=== PATIENT | male | born 1945 ===

== ENCOUNTER 2017-07-15 06:36 | Day surgery (SDC) | payer MEDICARE ==
[2017-07-14 16:32] VITALS: BMI 23.7
[2017-07-15] MEDS ORDERED: Lidocaine 2% Inj (20ml) ONE (07:15)
[2017-07-15] MEDS ORDERED: Phenylephrine 10 mg/ml Inj ONE (07:16)
[2017-07-15] MEDS ORDERED: Iodixanol 320 MG/ML 100 ML BOTTLE IV ONE (07:17)
[2017-07-15] MEDS ORDERED: Midazolam 2 MG/2 ML VIAL ONE ×2 (07:17→08:54)
[2017-07-15] MEDS ORDERED: Iodixanol 320 MG/ML 200 ML BOTTLE IV ONE (07:17)
[2017-07-15] MEDS ORDERED: Iohexol 350mgl/ml 50 ML ONE (07:17)
[2017-07-15] MEDS ORDERED: Nitroglycerin 50mg in D5W 0 MG/0 ML BOTTLE IV ONE (07:18)
[2017-07-15] MEDS ORDERED: HEPARIN SODIUM/NS 2,000 ML IV ONE (07:18)
[2017-07-15 07:26] LABS: BASO # 0.03 K/mm3 (0.0-2.0); BASO % 0.4 % (0.0-3.0); EOS # 0.9 (0.0-0.7); EOS % 11.2 % (1.5-5.0); GRAN # 4.7 (1.4-6.5); GRAN % 61.3 % (50.0-68.0); HEMOGLOBIN 14.4 g/dL (14.0-18.0); LYMPH # 1.4 (1.2-3.4); LYMPH % 18.5 % (22.0-35.0); MEAN CELL VOLUME 92.1 fl (80.0-105.0); MEAN CORPUSCULAR HEMOGLOBIN 30.1 pg (25.0-35.0); MEAN CORPUSCULAR HGB CONC 32.7 g/dl (31.0-37.0); MEAN PLATELET VOLUME 9.8 fl (7.0-11.0); MONO # 0.7 (0.1-0.6); MONO % 8.6 % (1.0-6.0); RBC 4.79 10^6/uL (3.5-6.1); RED CELL DISTRIBUTION WIDTH 12.5 % (11.5-14.5); WHITE BLOOD COUNT 7.7 10^3/ul (4.5-11.0)
[2017-07-15 07:36] LABS: BLOOD UREA NITROGEN 21 mg/dL (7-21); CALCIUM 9.8 mg/dL (8.4-10.5); GFR AFRICAN-AMERICAN > 60; GFR NON-AFRICAN AMERICAN 59; HDL CHOLESTEROL 34 mg/dL (29-60)
[2017-07-15 07:38] LABS: INR 1.03 (0.93-1.08); PARTIAL THROMBOPLASTIN TIME 28.7 Seconds (25.1-36.5); PROTHROMBIN TIME 11.9 SECONDS (9.4-12.5)
[2017-07-15 07:46] LABS: LDL CHOLESTEROL 166 mg/dL (0-129)
--- NOTE | 2017-07-15 10:09 | CARD ---
APPROVED REPORT EKG Measurement Heart [id number] <Conclusion> Normal sinus rhythm RSR' or QR pattern in V1 suggests right ventricular conduction delay Nonspecific T wave abnormality Abnormal ECG
[2017-07-15] MEDS ORDERED: Sodium Chloride 0.9% 1,000 ML IV SCH (10:30)
[2017-07-15 12:39] VITALS: RESP 18
--- NOTE | 2017-07-15 13:17 | CARDCATH ---
PROCEDURE DATE: 07/15/2017 HISTORY: The patient is a 71-year-old male with a history of hypercholesterolemia and hypertension, who presents with exertional angina. A stress test was markedly abnormal. Because of this, cardiac catheterization was recommended. PROCEDURE: Left heart catheterization with coronary arteriography and left ventriculogram. The right femoral artery was cannulated with a 6-[place] sheath. There were no complications. I performed moderate sedation, which included the presence of an independent trained observer that assisted in monitoring the patient's level of consciousness and physiologic status. After administration of Versed and fentanyl, my intra service time was 15 minutes. The findings on catheterization included a left ventricle that revealed an apical akinesis. The anterior and inferior wall moves well. Overall ejection fraction was approximately 50-55%. His coronary anatomy revealed heavy calcification throughout the coronary tree. The patient had a right dominant circulation. The RCA was occluded in its proximal portion with late filling of the distal vessels. The distal vessels including a PDA was small in nature. The left main artery is unremarkable. The LAD revealed a heavily calcified and diffuse 80% stenosis in its proximal portion. LAD was occluded after the first septal director geophysical laboratory with filling of the distal vessel by collaterals. The distal vessels of the LAD were not well visualized. The circumflex artery consisted of an obtuse marginal branch as well as the posterolateral branch. There were intimal irregularities without critical lesions. There is a 70% stenosis in the distal portion of the posterolateral branch. Angio-Seal was used to close the femoral artery site. The patient tolerated the procedure well. 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 The LAD and RCA appear chronically occluded with filling of the distal vessel via collaterals. The distal posterolateral branch of the circumflex artery revealed a 70% stenoses. Left ventriculogram revealed an akinetic apex with preserved anterior and inferior wall motion with an EF of approximately 50-55%. Given these findings, the patient's best treatment would be coronary artery bypass surgery. Angioplasty would have a low probability for success and a low probability for long-term patency. His distal vessel targets for bypass surgery may be a problem. Given these findings, I have discussed this with the patient and his . I will present the angiographic studies to Cardiac Surgery. He will follow up with Dr. Byers in the office this week where we can coordinate a therapeutic plan for the patient. Michael Carter MD [facility] # [id number]
[2017-07-15 13:23] VITALS: TEMP 98.2
[2017-07-15 13:36] VITALS: O2SAT 99
[2017-07-15 15:14] VITALS: BP 127/69; PULSE 73
== END 2017-07-15 16:05 | disposition home or self-care (01) ==
LOC: CATH 06:36
PROVIDERS: ATTEND Internal Medicine Cardiovascular Disease
DX: I25.110 Atherosclerotic heart disease of native coronary artery with unstable angina pectoris (principal); I10 Essential (primary) hypertension; E78.00 Pure hypercholesterolemia, unspecified; Z87.891 Personal history of nicotine dependence
CPT/HCPCS: 36415; 80048; 80061; 85025; 85610; 85730; 86850; 86900; 93005; 93458; 99152; 99153; C1760; C1769; C2629; J1644; J2250; J3010; J7030; J7040; Q9967